=== PATIENT | female | born 1985 | race African-American/Black ===

== ENCOUNTER 2016-06-27 13:38 | Emergency (ER) | payer OTHER ==
--- NOTE | ~2016-06-27 | CR63 ---
[facility] A Service of [facility] & [facility] RADIOLOGY TEXT RESULTS PATIENT: CATHIE GOMEZ LOCATION: [place] : [birth year] UNIT #: [id number] AGE: [address]: ANDREA MEJIA SEX: F ORDER DR: [id number] [facility] [address] [place], [place] [address] [id number] E MR#: [id number] Acc #: [id number] NAME: CATHIE GOMEZ : 1985 SEX: F STUDY DATE/TIME: 06/27/2016 1300 UNIT: [facility] ROOM: STUDY DESCRIPTION: CR Chest 2 View Attending Physician: Andrea Mejia Aprn Ordering Physician: Ed Doc Ifrah Gaytan Primary Care Physician: Ning Not Listed MEDICAL IMAGING REPORT This report is preliminary unless electronic signature is present EXAM Chest, 2 views, 06/27/2016, 1300 hours. CLINICAL HISTORY 30-year-old with complaint of cough and congestion for 2 days with soreness in chest and back today. COMPARISON None FINDINGS Upright PA and lateral views of the chest demonstrate normal cardiac, mediastinal, and hilar contours. The lungs are well expanded and clear. There is no effusion or pneumothorax. No rib lesion seen. IMPRESSION Normal two-view chest exam. Dictated by... Aisha Alberts M.D. THIS IS AN ELECTRONICALLY VERIFIED REPORT Aisha Alberts M.D. at 06/30/2016 9:17 AM EDWARD/pasha TD: 06/27/2016 16:43 JOB #: [id number] MEDICAL IMAGING REPORT COPY
[2016-06-27 13:53] LABS: INFLUENZA A NEG (NEG); INFLUENZA B NEG (NEG)
== END 2016-06-27 14:44 | disposition home or self-care (01) ==
LOC: CFTX 13:38
PROVIDERS: Nurse Practitioner Family
DX: J06.9 Acute upper respiratory infection, unspecified (principal); F17.210 Nicotine dependence, cigarettes, uncomplicated
CPT/HCPCS: 71020; 87804; 99283